=== PATIENT | male | born 1970 | race Caucasian/White ===

== ENCOUNTER 2017-01-12 15:12 | Inpatient (IN) | payer MEDICAID ==
[~2017-01-12] VITALS: Ht 172.7 cm; Wt 71.4 kg
[~2017-01-12 15:12] MED LIST: BUPR150T3 PO; QUET300T2 PO
[2017-01-12] MEDS ORDERED: HydrOXYzine PAMOATE 50 MG CAPSULE PO PRN (18:00)
[2017-01-12] MEDS ORDERED: MAG HYDROX/AL HYDROX/SIMETH ES 30 ML SUSPENSION UDCUP PO PRN (18:00)
[2017-01-12] MEDS ORDERED: TUBERCULIN, PURIFIED PROTEIN DERIVATIVE 5 TU/0.1 ML SYG ID ONE (18:00)
[2017-01-12] MEDS ORDERED: ZOLPIDEM TARTRATE 10 MG TABLET PO PRN (18:00)
[2017-01-12] MEDS ORDERED: ACETAMINOPHEN 325 MG TABLET PO PRN (18:00)
[2017-01-12] MEDS ORDERED: MAGNESIUM HYDROXIDE SUSPENSION 30 ML UDCUP PO PRN (18:00)
[2017-01-12] MEDS ORDERED: LOPERAMIDE HCL 2 MG CAPSULE PO PRN (18:00)
[2017-01-12] MEDS ORDERED: PROMETHAZINE HCL 25 MG TABLET PO PRN (18:00)
[2017-01-12] MEDS ORDERED: GuaiFENesin/D-METHORPHAN [SUGAR-FREE] 200-20MG/10 ML SYRUP UDCUP PO PRN (18:00)
[2017-01-12] MEDS ORDERED: QUEtiapine FUMARATE 100 MG TABLET PO PRN (18:00)
[2017-01-12 18:23] VITALS: BP 113/82
[2017-01-12] MEDS: THIAMINE HCL 100 MG TABLET PO SCH (19:30)
[2017-01-12] MEDS: ZIPRASIDONE HCL 60 MG CAPSULE PO SCH (21:44)
[2017-01-12] MEDS: LORazepam 2 MG TABLET PO PRN (22:29)
[2017-01-13 05:11] VITALS: BP 117/82
[2017-01-13] MEDS: OMEPRAZOLE 20 MG CAPSULE PO SCH (06:33)
[2017-01-13] MEDS: FERROUS SULFATE 325 MG EC TABLET PO SCH (06:34)
[2017-01-13 08:11] LABS: BASOPHILS % (AUTO) 0.3 % (0.0-2.0); EOSINOPHILS % (AUTO) 1.3 % (1.0-6.0); HEMATOCRIT 49.4 % (41-53); HEMOGLOBIN 16.2 g/dL (13.5-17.5); LYMPHOCYTES # (AUTO) 2.2 K/uL (1.0-4.8); LYMPHOCYTES % (AUTO) 32.9 % (22.0-44.0); MEAN CORPUSCULAR HEMOGLOBIN 31.9 pg (26.0-34.0); MEAN CORPUSCULAR HGB CONC 32.7 G/dL (31.0-37.0); MEAN CORPUSCULAR VOLUME 98 fL (80-100); MONOCYTES # (AUTO) 0.5 K/uL (0.1-1.0); MONOCYTES % (AUTO) 8.4 % (2.0-9.0); NEUTROPHILS # (AUTO) 3.7 K/uL (1.8-7.7); NEUTROPHILS % (AUTO) 57.1 % (40.0-70.0); PLATELET COUNT (AUTO) 115 K/uL (150-450); RED BLOOD CELL COUNT(AUTO) 5.06 MIL/uL (4.50-5.90); WHITE BLOOD COUNT (AUTO) 6.5 K/uL (4.5-11.0)
[2017-01-13 08:31] LABS: HEMOGLOBIN A1C 5.5 % (4.5-6.2)
[2017-01-13] MEDS: THIAMINE HCL 100 MG TABLET PO SCH ×2 (08:35→16:08)
[2017-01-13] MEDS: FOLIC ACID 1 MG TABLET PO SCH (08:35)
[2017-01-13 08:36] VITALS: BP 119/75
[2017-01-13] MEDS: BACITRACIN 28.4 GM OINTMENT TP SCH ×2 (08:36→16:09)
[2017-01-13] MEDS: BuPROPion HCL XL 150 MG ER TABLET PO SCH (08:36)
[2017-01-13] MEDS: ASCORBIC ACID 500 MG TABLET PO SCH (08:36)
[2017-01-13] MEDS: MULTIVITAMINS WITH MINERALS, THERAPEUTIC TABLET PO SCH (08:36)
[2017-01-13 08:58] LABS: ALANINE AMINOTRANSFERASE 69 U/L (12-78); ALBUMIN 3.2 g/dL (3.4-5.0); ANION GAP 6 mmol/L (8-16); ASPARTATE AMINOTRANSFERASE 42 U/L (15-37); BILIRUBIN,TOTAL 0.3 mg/dL (0.1-1.0); CALCIUM, TOTAL 8.8 mg/dL (8.8-10.5); CARBON DIOXIDE 29 mmol/L (22-29); CHLORIDE 107 mmol/L (98-107); CHOL/HDL RATIO 3.2 (4.2-7.3); CREATININE 1.01 mg/dL (0.60-1.30); GLOMERULAR FILTR. RATE CALC > 60 mL/min (>60); POTASSIUM 4.3 mmol/L (3.5-5.1); SODIUM SERUM 142 mmol/L (136-145); THYROID STIMULATING HORMONE 1.08 uIU/mL (0.36-3.74); TOTAL PROTEIN, SERUM 6.3 g/dL (6.4-8.2); UREA NITROGEN, BLOOD 14 mg/dL (7-18)
[2017-01-13 16:00] VITALS: BP 108/71
[2017-01-13] MEDS: LORazepam 2 MG TABLET PO PRN ×2 (16:09→21:24)
[2017-01-13 20:10] VITALS: BP 112/76
[2017-01-13] MEDS: ZIPRASIDONE HCL 60 MG CAPSULE PO SCH (20:10)
[2017-01-14] MEDS: OMEPRAZOLE 20 MG CAPSULE PO SCH (06:18)
[2017-01-14] MEDS: FERROUS SULFATE 325 MG EC TABLET PO SCH (06:18)
[2017-01-14] MEDS ORDERED: ZIPRASIDONE HCL 20 MG CAPSULE PO SCH (07:00)
[2017-01-14 07:23] VITALS: BP 102/74
[2017-01-14 08:39] VITALS: BP 120/89
[2017-01-14] MEDS: MUPIROCIN CALCIUM 2% 22 GM OINTMENT NASAL SCH ×3 (09:00→16:13)
[2017-01-14] MEDS: NALTREXONE HCL 50 MG TABLET PO SCH (09:03)
[2017-01-14] MEDS: FOLIC ACID 1 MG TABLET PO SCH (09:03)
[2017-01-14] MEDS: THIAMINE HCL 100 MG TABLET PO SCH ×2 (09:03→16:13)
[2017-01-14] MEDS: BuPROPion HCL XL 150 MG ER TABLET PO SCH (09:03)
[2017-01-14] MEDS: ASCORBIC ACID 500 MG TABLET PO SCH (09:03)
[2017-01-14] MEDS: MULTIVITAMINS WITH MINERALS, THERAPEUTIC TABLET PO SCH (09:03)
[2017-01-14] MEDS: BACITRACIN 28.4 GM OINTMENT TP SCH ×2 (09:04→16:13)
[2017-01-14 16:00] VITALS: BP 131/85
[2017-01-14] MEDS: LORazepam 2 MG TABLET PO PRN (19:52)
[2017-01-14] MEDS: ZIPRASIDONE HCL 60 MG CAPSULE PO SCH (20:25)
[2017-01-15 02:02] VITALS: BP 113/78
[2017-01-15] MEDS: ZIPRASIDONE HCL 40 MG CAPSULE PO SCH (06:50)
[2017-01-15] MEDS: FERROUS SULFATE 325 MG EC TABLET PO SCH (06:50)
[2017-01-15] MEDS: OMEPRAZOLE 20 MG CAPSULE PO SCH (06:50)
[2017-01-15 08:11] VITALS: BP 117/71
[2017-01-15] MEDS: FOLIC ACID 1 MG TABLET PO SCH (08:30)
[2017-01-15] MEDS: MULTIVITAMINS WITH MINERALS, THERAPEUTIC TABLET PO SCH (08:30)
[2017-01-15] MEDS: BuPROPion HCL XL 150 MG ER TABLET PO SCH (08:31)
[2017-01-15] MEDS: ASCORBIC ACID 500 MG TABLET PO SCH (08:31)
[2017-01-15] MEDS: THIAMINE HCL 100 MG TABLET PO SCH ×2 (08:31→16:17)
[2017-01-15] MEDS: NALTREXONE HCL 50 MG TABLET PO SCH (08:31)
[2017-01-15] MEDS: MUPIROCIN CALCIUM 2% 22 GM OINTMENT NASAL SCH ×2 (09:21→16:17)
[2017-01-15] MEDS: BACITRACIN 28.4 GM OINTMENT TP SCH ×2 (11:57→16:17)
[2017-01-15 16:33] VITALS: BP 111/78
[2017-01-15] MEDS: LORazepam 2 MG TABLET PO PRN (19:31)
[2017-01-15] MEDS: ZIPRASIDONE HCL 60 MG CAPSULE PO SCH (20:13)
[2017-01-16 06:21] VITALS: BP 121/90
[2017-01-16] MEDS: OMEPRAZOLE 20 MG CAPSULE PO SCH (06:32)
[2017-01-16] MEDS: ZIPRASIDONE HCL 40 MG CAPSULE PO SCH (06:49)
[2017-01-16] MEDS: FERROUS SULFATE 325 MG EC TABLET PO SCH (06:49)
[2017-01-16] MEDS: ZIPRASIDONE HCL 60 MG CAPSULE PO SCH ×2 (06:50→17:09)
[2017-01-16] MEDS: MULTIVITAMINS WITH MINERALS, THERAPEUTIC TABLET PO SCH (07:51)
[2017-01-16] MEDS: FOLIC ACID 1 MG TABLET PO SCH (07:51)
[2017-01-16] MEDS: THIAMINE HCL 100 MG TABLET PO SCH ×2 (07:51→17:09)
[2017-01-16] MEDS: MUPIROCIN CALCIUM 2% 22 GM OINTMENT NASAL SCH ×2 (07:52→17:09)
[2017-01-16] MEDS: NALTREXONE HCL 50 MG TABLET PO SCH (07:52)
[2017-01-16] MEDS: BACITRACIN 28.4 GM OINTMENT TP SCH ×2 (07:52→17:09)
[2017-01-16] MEDS: BuPROPion HCL XL 150 MG ER TABLET PO SCH (07:52)
[2017-01-16] MEDS: ASCORBIC ACID 500 MG TABLET PO SCH (07:53)
[2017-01-16 08:20] VITALS: BP 130/89
[2017-01-16 16:00] VITALS: BP 125/92
[2017-01-16] MEDS: LORazepam 2 MG TABLET PO PRN (20:30)
[2017-01-17 05:54] VITALS: BP 115/83
[2017-01-17] MEDS: OMEPRAZOLE 20 MG CAPSULE PO SCH (06:40)
[2017-01-17] MEDS: FERROUS SULFATE 325 MG EC TABLET PO SCH (06:48)
[2017-01-17] MEDS: ZIPRASIDONE HCL 60 MG CAPSULE PO SCH ×2 (06:48→17:13)
[2017-01-17] MEDS: MUPIROCIN CALCIUM 2% 22 GM OINTMENT NASAL SCH ×2 (07:56→17:13)
[2017-01-17] MEDS: MULTIVITAMINS WITH MINERALS, THERAPEUTIC TABLET PO SCH (07:56)
[2017-01-17] MEDS: THIAMINE HCL 100 MG TABLET PO SCH ×2 (07:56→17:13)
[2017-01-17] MEDS: ASCORBIC ACID 500 MG TABLET PO SCH (07:56)
[2017-01-17] MEDS: FOLIC ACID 1 MG TABLET PO SCH (07:56)
[2017-01-17] MEDS: BACITRACIN 28.4 GM OINTMENT TP SCH ×2 (07:57→17:13)
[2017-01-17] MEDS: BuPROPion HCL XL 150 MG ER TABLET PO SCH (07:57)
[2017-01-17] MEDS: NALTREXONE HCL 50 MG TABLET PO SCH (07:57)
[2017-01-17 08:00] VITALS: BP 120/95
[2017-01-17] MEDS: NICOTINE 14 MG/24 HOUR PATCH TD SCH (08:07)
[2017-01-17 19:44] VITALS: BP 118/86
[2017-01-17] MEDS: LORazepam 2 MG TABLET PO PRN (20:36)
[2017-01-18] MEDS: FERROUS SULFATE 325 MG EC TABLET PO SCH (06:48)
[2017-01-18] MEDS: OMEPRAZOLE 20 MG CAPSULE PO SCH (06:48)
[2017-01-18] MEDS: ZIPRASIDONE HCL 60 MG CAPSULE PO SCH ×2 (06:48→16:26)
[2017-01-18 08:00] VITALS: BP 121/77
[2017-01-18] MEDS: MUPIROCIN CALCIUM 2% 22 GM OINTMENT NASAL SCH ×2 (08:09→16:27)
[2017-01-18] MEDS: BACITRACIN 28.4 GM OINTMENT TP SCH ×2 (08:09→16:27)
[2017-01-18] MEDS: FOLIC ACID 1 MG TABLET PO SCH (08:09)
[2017-01-18] MEDS: ASCORBIC ACID 500 MG TABLET PO SCH (08:09)
[2017-01-18] MEDS: MULTIVITAMINS WITH MINERALS, THERAPEUTIC TABLET PO SCH (08:09)
[2017-01-18] MEDS: THIAMINE HCL 100 MG TABLET PO SCH ×2 (08:10→16:26)
[2017-01-18] MEDS: NALTREXONE HCL 50 MG TABLET PO SCH (08:10)
[2017-01-18] MEDS: BuPROPion HCL XL 150 MG ER TABLET PO SCH (08:10)
[2017-01-18] MEDS: NICOTINE 14 MG/24 HOUR PATCH TD SCH (09:02)
[2017-01-18 17:09] VITALS: BP 111/81
[2017-01-19] MEDS: ZIPRASIDONE HCL 60 MG CAPSULE PO SCH ×2 (07:02→17:22)
[2017-01-19] MEDS: FERROUS SULFATE 325 MG EC TABLET PO SCH (07:02)
[2017-01-19] MEDS: OMEPRAZOLE 20 MG CAPSULE PO SCH (07:02)
[2017-01-19] MEDS: NICOTINE 14 MG/24 HOUR PATCH TD SCH (08:04)
[2017-01-19] MEDS: THIAMINE HCL 100 MG TABLET PO SCH ×2 (08:04→17:22)
[2017-01-19] MEDS: BuPROPion HCL XL 150 MG ER TABLET PO SCH (08:04)
[2017-01-19] MEDS: FOLIC ACID 1 MG TABLET PO SCH (08:05)
[2017-01-19] MEDS: ASCORBIC ACID 500 MG TABLET PO SCH (08:05)
[2017-01-19] MEDS: MULTIVITAMINS WITH MINERALS, THERAPEUTIC TABLET PO SCH (08:05)
[2017-01-19] MEDS: NALTREXONE HCL 50 MG TABLET PO SCH (08:05)
[2017-01-19] MEDS: BACITRACIN 28.4 GM OINTMENT TP SCH ×2 (08:06→17:22)
[2017-01-19] MEDS: MUPIROCIN CALCIUM 2% 22 GM OINTMENT NASAL SCH ×2 (08:06→17:22)
[2017-01-19 08:17] VITALS: BP 125/93
[2017-01-19 19:12] VITALS: BP 114/79
[2017-01-19] MEDS: LORazepam 2 MG TABLET PO PRN (21:13)
[2017-01-20] MEDS: OMEPRAZOLE 20 MG CAPSULE PO SCH (06:38)
[2017-01-20] MEDS: FERROUS SULFATE 325 MG EC TABLET PO SCH (06:38)
[2017-01-20] MEDS ORDERED: ZIPRASIDONE HCL 80 MG CAPSULE PO SCH (07:30)
[2017-01-20 08:23] VITALS: BP 108/74
[2017-01-20] MEDS: NICOTINE 14 MG/24 HOUR PATCH TD SCH (09:06)
[2017-01-20] MEDS: THIAMINE HCL 100 MG TABLET PO SCH (09:07)
[2017-01-20] MEDS: MULTIVITAMINS WITH MINERALS, THERAPEUTIC TABLET PO SCH (09:07)
[2017-01-20] MEDS: BuPROPion HCL XL 150 MG ER TABLET PO SCH (09:12)
[2017-01-20] MEDS: NALTREXONE HCL 50 MG TABLET PO SCH (09:13)
[2017-01-20] MEDS: BACITRACIN 28.4 GM OINTMENT TP SCH (09:14)
[2017-01-20] MEDS: FOLIC ACID 1 MG TABLET PO SCH (09:14)
[2017-01-20] MEDS: ASCORBIC ACID 500 MG TABLET PO SCH (09:15)
[2017-01-20] MEDS ORDERED: ASCO500 PO (13:11)
[2017-01-20] MEDS ORDERED: FERS325 PO (13:11)
[2017-01-20] MEDS ORDERED: OMEP20 PO (13:11)
[2017-01-20] MEDS ORDERED: ZIPR80CA2 PO (13:15)
[2017-01-20] MEDS ORDERED: NALT50 PO (13:15)
== END 2017-01-20 15:30 | disposition home or self-care (01) | DRG 750 ==
LOC: B3A 18:02 → 3EC 01-14 12:15
PROVIDERS: ADMIT Psychiatry & Neurology Psychiatry; ATTEND Psychiatry & Neurology Psychiatry
DX: F25.0 Schizoaffective disorder, bipolar type (principal); K21.9 Gastro-esophageal reflux disease without esophagitis; Z65.3 Problems related to other legal circumstances; Z88.0 Allergy status to penicillin; Z88.8 Allergy status to other drugs, medicaments and biological substances; Z79.899 Other long term (current) drug therapy
CPT/HCPCS: 83036; 84439; 84443; 86592; 87081